=== PATIENT | female | born 1955 | race Native Hawaiian/Other Pacific Islander ===

== ENCOUNTER 2016-07-31 13:12 | Emergency (ER) | payer BC ==
[~2016-07-31] VITALS: Ht 162.6 cm; Wt 56.5 kg
[2016-07-31 13:21] VITALS: BP 114/69
== END 2016-07-31 15:02 | disposition home or self-care (01) ==
LOC: ED 13:12
DX: S61.216A Laceration without foreign body of right little finger without damage to nail, initial encounter (principal); X58.XXXA Exposure to other specified factors, initial encounter; Y93.89 Activity, other specified; Y99.8 Other external cause status; Y92.89 Other specified places as the place of occurrence of the external cause
CPT/HCPCS: 90715; A4570; J2001